=== PATIENT | female | born 1985 | race African-American/Black ===

== ENCOUNTER 2022-06-01 11:20 | Outpatient (CLI) | payer OTHER ==
--- NOTE | 2022-06-01 19:34 | XRAY Report ---
PROCEDURE: Toe(s) RT INDICATIONS: CONTUSION OF RIGHT LESSER TOE WITHOUT DAMAGE TO NAIL TECHNIQUE: 3 views of the fifth toe(s) acquired. COMPARISON: None FINDINGS: Bones: Questionable nondisplaced fracture of the fifth digit distal phalanx at the medial aspect. No dislocation. No suspicious bony lesions. Soft tissues: No suspicious soft tissue densities. IMPRESSION: Question of nondisplaced fracture at the fifth digit distal phalanx medial aspect. Consider follow-up radiographs in 7-10 days. Reviewed by: Randy Garcia MD on 06/01/2022 7:33 PM PST Approved by: Randy Garcia MD on 06/01/2022 7:33 PM PST Station ID: [id number]
== END 2022-06-01 11:21 | disposition home or self-care (01) ==
LOC: DI 11:20
PROVIDERS: ATTEND Physician Assistant
DX: S90.121A Contusion of right lesser toe(s) without damage to nail, initial encounter (principal)